=== PATIENT | female | born 1980 | race Caucasian/White ===

== ENCOUNTER → 2020-02-08 | Emergency (ER) | payer OTHER ==
[~2020-02-08] VITALS: Ht 149.9 cm; Wt 59.1 kg
[~2020-02-08] MED LIST: CEPH-264 PO; LIDOCAINE 1% Multi-Dose 20 ML VIAL. INJ ONE
[2020-02-08 10:43] VITALS: BP 133/68
--- NOTE | 2020-02-08 11:30 | RAD ---
EXAM: RIGHT FEMUR XRAY 02/08/2020 12:00 AM CLINICAL INDICATION:Laceration lateral thigh which is of the right knee. COMPARISON:None TECHNIQUE:3 views of the right femur FINDINGS:No acute fracture. Alignment is normal. There is no radiopaque foreign body or soft tissue abnormality. IMPRESSION:No radiopaque foreign body or acute osseous abnormality. Electronically signed by: Leigh Osorio MD (02/08/2020 11:27 AM) [id number]
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
== END ==
LOC: ER 10:37
DX: S71.111A Laceration without foreign body, right thigh, initial encounter (principal); Z90.710 Acquired absence of both cervix and uterus; Z98.890 Other specified postprocedural states; W26.0XXA Contact with knife, initial encounter; Y93.89 Activity, other specified; Y92.89 Other specified places as the place of occurrence of the external cause; Y99.8 Other external cause status
CPT/HCPCS: 12002; 73552; 99283